=== PATIENT | male | born 1975 | race Caucasian/White ===

== ENCOUNTER 2023-08-30 13:10 | Day surgery (SDC) | payer OTHER ==
[2023-08-30] MEDS ORDERED: Glycopyrrolate 0.2 MG/ML 5 ML SYRINGE ONE (13:43)
[2023-08-30] MEDS ORDERED: NEOSTIGMINE 3 MG/3 ML SYR 3 MG/3 ML SYRINGE ONE (13:43)
[2023-08-30] MEDS ORDERED: PROPOFOL 200 MG/20 ML VIAL ONE (13:43)
[2023-08-30] MEDS ORDERED: Lidocaine 1% PF 5 ML VIAL ONE (13:43)
[2023-08-30] MEDS ORDERED: Dexamethasone 20 MG/5 ML VIAL ONE (13:43)
[2023-08-30] MEDS ORDERED: Rocuronium Bromide 10 MG/ML (10ML VIAL) ONE (13:43)
[2023-08-30] MEDS ORDERED: Ondansetron PF 4 MG/2 ML Vial ONE (13:43)
== END 2023-08-30 15:08 ==
LOC: SDC/OP 13:10
PROVIDERS: ATTEND Internal Medicine
PROC: 0DC68ZZ Extirpation of Matter from Stomach, Via Natural or Artificial Opening Endoscopic (ICD-10-PCS; principal; 2023-08-30)
DX: T18.198A Other foreign object in esophagus causing other injury, initial encounter (principal); Z88.0 Allergy status to penicillin; R74.01 Elevation of levels of liver transaminase levels; W44.8XXA Other foreign body entering into or through a natural orifice, initial encounter
CPT/HCPCS: J1100; J2405; J2704